=== PATIENT | female | born 1975 | race Caucasian/White ===

== ENCOUNTER 2017-07-08 09:52 | Day surgery (SDC) | payer OTHER ==
[~2017-07-08 09:52] MED LIST: DEXAMETHASONE 4 MG/ML 1 ML INJ; METOCLOPRAMIDE 10 MG INJ; ONDANSETRON 4 MG INJ
[2017-07-08] MEDS ORDERED: MIDAZOLAM 1 MG/ML 2 ML INJ (10:10)
[2017-07-08] MEDS ORDERED: FENTAnyl 50 MCG/ML VIAL (10:10)
[2017-07-08] MEDS ORDERED: PROPOFOL 20 ML (10:13)
[2017-07-08] MEDS ORDERED: LIDOCAINE 2% (SDV) 5 ML INJ (10:13)
[2017-07-08] MEDS ORDERED: CEFAZOLIN 1 GM INJ (10:17)
[2017-07-08] MEDS ORDERED: METOCLOPRAMIDE 10 MG INJ IV (14:00)
[2017-07-08] MEDS ORDERED: ONDANSETRON 4 MG INJ IV (14:00)
[2017-07-08] MEDS ORDERED: MEPERIDINE 25 MG INJ IV (14:00)
[2017-07-08] MEDS ORDERED: HYDROmorphONE (0.2 MG/ML) 10ML SYG IV (14:00)
[2017-07-08] MEDS ORDERED: DIPHENHYDRAMINE 50 MG INJ IV (14:00)
[2017-07-08] MEDS: KETOROLAC 30 MG INJ IV (14:02)
[2017-07-08] MEDS: HYDROmorphONE (0.2 MG/ML) 10ML SYG IV (14:03)
== END 2017-07-08 16:00 | disposition home or self-care (01) ==
LOC: SDS 09:52
DX: N92.0 Excessive and frequent menstruation with regular cycle (principal)
CPT/HCPCS: 58120; 88305